=== PATIENT | male | born 1970 | race Caucasian/White ===

== ENCOUNTER 2017-11-28 05:23 | Observation (INO) | payer BC, OTHER ==
[2017-11-28] MEDS: ONDANSETRON 4 MG INJ IV ×2 (05:43→06:04)
[2017-11-28] MEDS: SOD CHLORIDE 0.9% 1,000 ML IV ×3 (05:43→22:09)
[2017-11-28] MEDS: HYDROmorphONE 1 MG/5 ML IV SYRINGE IV ×2 (05:43→06:04)
[2017-11-28 06:21] LABS: ADD MAN DIFF? NO
[2017-11-28 06:22] LABS: WHITE BLOOD COUNT 12.1 10^3/ul (4.8-10.8)
[2017-11-28 06:22] LABS: ABNORMAL IP MESSAGE 1; BASOPHIL # 0.1 10^3/ul (0.0-0.1); BASOPHILS % 0.7 % (0.0-2.0); EOSINOPHILS # 0.8 10^3/ul (0.0-0.5); EOSINOPHILS % 6.7 % (0.0-7.0); HEMATOCRIT 43.2 % (42.0-52.0); HEMOGLOBIN 14.9 g/dl (14.0-18.0); LYMPHOCYTES # 6.5 10^3/ul (0.8-2.9); LYMPHOCYTES % 53.8 % (15.0-51.0); MEAN CORPUSCULAR HGB CONC 34.5 g/dl (32.0-37.0); MEAN CORPUSCULAR VOLUME 92.9 fl (82.0-101.0); MEAN PLATELET VOLUME 10.6 fl (7.4-10.4); MONOCYTE # 1.2 10^3/ul (0.3-0.9); MONOCYTES % 9.5 % (0.0-11.0); NEUTROPHIL # 3.5 10^3/ul (1.6-7.5); NEUTROPHILS % 29.1 % (39.0-77.0); PLATELET COUNT 391 10^3/UL (140-415); POSITIVE DIFF @See below; RED BLOOD COUNT 4.65 10^6/ul (4.70-6.10); RED CELL DISTRIBUTION WIDTH 13.4 % (11.5-14.5)
[2017-11-28 06:42] LABS: ALANINE AMINOTRANSFERASE 24 IU/L (13-69); ALBUMIN 4.5 g/dl (3.3-4.9); ALBUMIN/GLOBULIN RATIO 1.15; ALKALINE PHOSPHATASE 91 IU/L (42-121); ANION GAP 19 (8-16); ASPARTATE AMINO TRANSFERASE 25 IU/L (15-46); BILIRUBIN,INDIRECT 0.2 mg/dl (0-1.1); BILIRUBIN,TOTAL 0.2 mg/dl (0.2-1.3); BLOOD UREA NITROGEN 14 mg/dl (7-20); CALCIUM 9.6 mg/dl (8.4-10.2); CARBON DIOXIDE 26 mmol/L (21-31); CHLORIDE 103 mmol/L (97-110); CREATININE 0.76 mg/dl (0.61-1.24); GLUCOSE 113 mg/dl (70-220); LIPASE 135 U/L (23-300); POTASSIUM 3.7 mmol/L (3.5-5.1); SODIUM 144 mmol/L (135-144); TOTAL PROTEIN 8.4 g/dl (6.1-8.1)
[2017-11-28] MEDS: morphine 4 MG/ML VIAL IV (07:26)
[2017-11-28] MEDS: LEVOFLOXACIN 750MG/D5W (PMX) 150 ML IVPB (07:26)
[2017-11-28] MEDS ORDERED: NACL 0.9% 3 ML SYG IV (12:30)
[2017-11-28] MEDS ORDERED: morphine 2 MG INJ IV (12:30)
[2017-11-28] MEDS ORDERED: ONDANSETRON 4 MG INJ IV (12:30)
[2017-11-28] MEDS: PIPER-TAZO 3.375 GM IV (PMX) 100 ML IVPB ×2 (13:54→18:06)
[2017-11-28 14:31] LABS: ADD UMIC YES; UR ASCORBIC ACID NEGATIVE (NEGATIVE); UR BILIRUBIN (Dip) NEGATIVE (NEGATIVE); UR BLOOD (Dip) 2+ mg/dL (NEGATIVE); UR CLARITY CLEAR (CLEAR); UR COLOR YELLOW (YELLOW); UR GLUCOSE (Dip) NEGATIVE (NEGATIVE); UR KETONES (Dip) NEGATIVE (NEGATIVE); UR LEUKOCYTE ESTERASE (Dip) TRACE Leu/ul (NEGATIVE); UR MUCUS FEW /HPF (NONE SEEN); UR NITRITE (Dip) NEGATIVE (NEGATIVE); UR RBC 36 /HPF (0-5); UR SPECIFIC GRAVITY (Dip) 1.014 (1.003-1.030); UR TOTAL PROTEIN (Dip) NEGATIVE (NEGATIVE); UR UROBILINOGEN (Dip) NEGATIVE (NEGATIVE); UR WBC 7 /HPF (0-5)
[2017-11-28] MEDS: ACETAMINOPHEN 325 MG TAB PO (18:56)
[2017-11-28] MEDS: FAMOTIDINE 20 MG TAB PO (20:42)
[2017-11-29] MEDS: PIPER-TAZO 3.375 GM IV (PMX) 100 ML IVPB ×4 (01:28→18:29)
[2017-11-29] MEDS: SOD CHLORIDE 0.9% 1,000 ML IV ×3 (01:35→18:09)
[2017-11-29 06:30] LABS: ADD MAN DIFF? NO
[2017-11-29 06:40] LABS: ABNORMAL IP MESSAGE 1; BASOPHIL # 0.1 10^3/ul (0.0-0.1); BASOPHILS % 0.4 % (0.0-2.0); EOSINOPHILS # 0.3 10^3/ul (0.0-0.5); EOSINOPHILS % 1.6 % (0.0-7.0); HEMATOCRIT 41.6 % (42.0-52.0); HEMOGLOBIN 14.5 g/dl (14.0-18.0); LYMPHOCYTES # 1.9 10^3/ul (0.8-2.9); LYMPHOCYTES % 10.4 % (15.0-51.0); MEAN CORPUSCULAR HEMOGLOBIN 31.9 pg (29.0-33.0); MEAN CORPUSCULAR HGB CONC 34.9 g/dl (32.0-37.0); MEAN CORPUSCULAR VOLUME 91.4 fl (82.0-101.0); MEAN PLATELET VOLUME 10.2 fl (7.4-10.4); MONOCYTE # 2.2 10^3/ul (0.3-0.9); MONOCYTES % 12.3 % (0.0-11.0); NEUTROPHIL # 13.4 10^3/ul (1.6-7.5); NEUTROPHILS % 74.7 % (39.0-77.0); PLATELET COUNT 361 10^3/UL (140-415); POSITIVE DIFF @See below; RED BLOOD COUNT 4.55 10^6/ul (4.70-6.10); RED CELL DISTRIBUTION WIDTH 13.1 % (11.5-14.5)
[2017-11-29 06:53] LABS: HEMOGLOBIN A1C 5.3 % (0-5.9)
[2017-11-29 07:04] LABS: ALANINE AMINOTRANSFERASE 41 IU/L (13-69); ALBUMIN 3.5 g/dl (3.3-4.9); ALBUMIN/GLOBULIN RATIO 1.02; ALKALINE PHOSPHATASE 80 IU/L (42-121); ANION GAP 11 (8-16); ASPARTATE AMINO TRANSFERASE 26 IU/L (15-46); BILIRUBIN,INDIRECT 1.2 mg/dl (0-1.1); BILIRUBIN,TOTAL 1.2 mg/dl (0.2-1.3); BLOOD UREA NITROGEN 10 mg/dl (7-20); CALCIUM 8.7 mg/dl (8.4-10.2); CARBON DIOXIDE 28 mmol/L (21-31); CHLORIDE 106 mmol/L (97-110); CHOL/HDL RATIO 4.4 RATIO; CHOLESTEROL 182 mg/dl (100-200); CREATININE 0.87 mg/dl (0.61-1.24); GLUCOSE 117 mg/dl (70-220); HDL CHOLESTEROL 41 mg/dl (27-67); LDL CHOLESTEROL,CALCULATED 131 mg/dl; MAGNESIUM 1.7 mg/dl (1.7-2.5); PHOSPHORUS 3.2 mg/dl (2.5-4.9); POTASSIUM 3.8 mmol/L (3.5-5.1); SODIUM 141 mmol/L (135-144); TOTAL PROTEIN 6.9 g/dl (6.1-8.1); TRIGLYCERIDES 51 mg/dl (0-149)
[2017-11-29 07:27] LABS: THYROID STIMULATING HORMONE 0.883 MIU/L (0.465-4.680)
[2017-11-29] MEDS: FAMOTIDINE 20 MG TAB PO ×2 (12:35→20:56)
[2017-11-30] MEDS: PIPER-TAZO 3.375 GM IV (PMX) 100 ML IVPB ×2 (00:22→06:24)
[2017-11-30] MEDS: SOD CHLORIDE 0.9% 1,000 ML IV ×2 (00:22→04:09)
[2017-11-30 06:24] LABS: ADD MAN DIFF? NO
[2017-11-30 06:33] LABS: WHITE BLOOD COUNT 14.7 10^3/ul (4.8-10.8)
[2017-11-30 06:33] LABS: ABNORMAL IP MESSAGE 1; BASOPHIL # 0.1 10^3/ul (0.0-0.1); BASOPHILS % 0.7 % (0.0-2.0); EOSINOPHILS # 0.9 10^3/ul (0.0-0.5); EOSINOPHILS % 6.3 % (0.0-7.0); HEMATOCRIT 39.2 % (42.0-52.0); HEMOGLOBIN 13.3 g/dl (14.0-18.0); LYMPHOCYTES # 1.9 10^3/ul (0.8-2.9); LYMPHOCYTES % 13.1 % (15.0-51.0); MEAN CORPUSCULAR HEMOGLOBIN 31.4 pg (29.0-33.0); MEAN CORPUSCULAR HGB CONC 33.9 g/dl (32.0-37.0); MEAN CORPUSCULAR VOLUME 92.5 fl (82.0-101.0); MEAN PLATELET VOLUME 10.6 fl (7.4-10.4); MONOCYTE # 1.8 10^3/ul (0.3-0.9); NEUTROPHIL # 9.9 10^3/ul (1.6-7.5); NEUTROPHILS % 67.5 % (39.0-77.0); PLATELET COUNT 342 10^3/UL (140-415); POSITIVE DIFF @See below; RED BLOOD COUNT 4.24 10^6/ul (4.70-6.10); RED CELL DISTRIBUTION WIDTH 13.4 % (11.5-14.5)
[2017-11-30] MEDS: FAMOTIDINE 20 MG TAB PO (08:38)
== END 2017-11-30 14:20 | disposition home or self-care (01) ==
LOC: E/R 05:23 → MS2 09:13
DX: K80.00 Calculus of gallbladder with acute cholecystitis without obstruction (principal); K43.9 Ventral hernia without obstruction or gangrene; Z87.891 Personal history of nicotine dependence
CPT/HCPCS: 36415; 74018; 74176; 76705; 78226; 80053; 80061; 81001; 83036; 83690; 83735; 84100; 84443; 85025; 87040; 87086; 96374; 96375; 99285-25

== ENCOUNTER 2018-04-13 00:51 | Emergency (ER) | payer BC | END 2018-04-13 04:04 | disposition home or self-care (01) | LOC: FTE 00:51 | DX: S52.125A Nondisplaced fracture of head of left radius, initial encounter for closed fracture (principal); W17.89XA Other fall from one level to another, initial encounter; Y92.9 Unspecified place or not applicable | CPT/HCPCS: 29125; 73030; 73080-LT; 99283-25 ==

== ENCOUNTER 2018-09-09 02:25 | Emergency (ER) | payer OTHER, BC ==
[2018-09-09 03:01] LABS: ADD MAN DIFF? NO
[2018-09-09] MEDS: morphine 4 MG/ML VIAL IV ×2 (03:01→05:14)
[2018-09-09] MEDS: SOD CHLORIDE 0.9% 1,000 ML IV (03:02)
[2018-09-09] MEDS: ONDANSETRON 4 MG INJ IV (03:02)
[2018-09-09 03:06] LABS: WHITE BLOOD COUNT 10.1 10^3/ul (4.8-10.8)
[2018-09-09 03:06] LABS: BASOPHIL # 0.1 10^3/ul (0.0-0.1); BASOPHILS % 0.5 % (0.0-2.0); EOSINOPHILS # 0.9 10^3/ul (0.0-0.5); EOSINOPHILS % 8.4 % (0.0-7.0); LYMPHOCYTES # 4.7 10^3/ul (0.8-2.9); LYMPHOCYTES % 46.5 % (15.0-51.0); MEAN CORPUSCULAR HEMOGLOBIN 31.4 pg (29.0-33.0); MEAN CORPUSCULAR HGB CONC 33.3 g/dl (32.0-37.0); MEAN CORPUSCULAR VOLUME 94.2 fl (82.0-101.0); MEAN PLATELET VOLUME 9.8 fl (7.4-10.4); MONOCYTE # 1.1 10^3/ul (0.3-0.9); MONOCYTES % 10.4 % (0.0-11.0); NEUTROPHIL # 3.4 10^3/ul (1.6-7.5); NEUTROPHILS % 33.8 % (39.0-77.0); PLATELET COUNT 349 10^3/UL (140-415); RED BLOOD COUNT 4.46 10^6/ul (4.70-6.10); RED CELL DISTRIBUTION WIDTH 13.1 % (11.5-14.5)
[2018-09-09 03:24] LABS: ADD UMIC YES; UR ASCORBIC ACID NEGATIVE (NEGATIVE); UR BILIRUBIN (Dip) NEGATIVE (NEGATIVE); UR BLOOD (Dip) 2+ mg/dL (NEGATIVE); UR CLARITY CLEAR (CLEAR); UR COLOR YELLOW (YELLOW); UR GLUCOSE (Dip) NEGATIVE (NEGATIVE); UR KETONES (Dip) NEGATIVE (NEGATIVE); UR LEUKOCYTE ESTERASE (Dip) NEGATIVE Leu/ul (NEGATIVE); UR MUCUS FEW /HPF (NONE SEEN); UR NITRITE (Dip) NEGATIVE (NEGATIVE); UR RBC 18 /HPF (0-5); UR SPECIFIC GRAVITY (Dip) 1.017 (1.003-1.030); UR SQUAMOUS EPITHELIAL CELL FEW /HPF (FEW); UR TOTAL PROTEIN (Dip) NEGATIVE (NEGATIVE); UR UROBILINOGEN (Dip) 1+ mg/dL (NEGATIVE); UR WBC 1 /HPF (0-5)
[2018-09-09 03:59] LABS: ALANINE AMINOTRANSFERASE 20 IU/L (13-69); ALBUMIN 4.3 g/dl (3.3-4.9); ALBUMIN/GLOBULIN RATIO 1.19; ALKALINE PHOSPHATASE 78 IU/L (42-121); ANION GAP 10 (5-13); ASPARTATE AMINO TRANSFERASE 22 IU/L (15-46); BILIRUBIN,INDIRECT 0.1 mg/dl (0-1.1); BILIRUBIN,TOTAL 0.1 mg/dl (0.2-1.3); BLOOD UREA NITROGEN 16 mg/dl (7-20); CALCIUM 9.5 mg/dl (8.4-10.2); CARBON DIOXIDE 26 mmol/L (21-31); CHLORIDE 106 mmol/L (97-110); CREATININE 0.83 mg/dl (0.61-1.24); Estimated GFR > 60 mL/min (>60); GLUCOSE 119 mg/dl (70-220); LIPASE 112 U/L (23-300); POTASSIUM 3.9 mmol/L (3.5-5.1); SODIUM 142 mmol/L (135-144); TOTAL PROTEIN 7.9 g/dl (6.1-8.1)
[2018-09-09] MEDS: traMADol 50 MG TAB PO (06:05)
== END 2018-09-09 07:23 | disposition home or self-care (01) ==
LOC: E/R 02:25
DX: K43.9 Ventral hernia without obstruction or gangrene (principal); F17.210 Nicotine dependence, cigarettes, uncomplicated
CPT/HCPCS: 36415; 74176; 80053; 81001; 83690; 85025; 96361; 96374; 96375; 96376; 99285-25